=== PATIENT | female | born 1990 | race Caucasian/White ===

== ENCOUNTER 2018-03-09 13:46 | Emergency (ER) | payer SELFPAY ==
[~2018-03-09] VITALS: Ht 165.1 cm; Wt 95.2 kg
[2018-03-09 13:51] VITALS: Ht 165.1 cm; Wt 95.2 kg
[2018-03-09 15:21] LABS: BASOPHIL % 0.8 % (0-2); PLATELET COUNT 284 x10^3mcL (130-400)
[2018-03-09 15:34] LABS: UA SPECIFIC GRAVITY 1.025 (1.005-1.035); urine erythrocyte NEGATIVE (NEGATIVE)
[2018-03-09 15:40] LABS: microscopic required? YES
[2018-03-09 16:14] LABS: RED CELL DISTRIBUTION WIDTH 15.1 % (11.5-14.5)
[2018-03-09 16:35] LABS: CALCIUM 8.1 mg/dL (8.5-10.1); CARBON DIOXIDE 23.7 mmol/L (21-32); CHLORIDE SERUM 106 mmol/L (98-107); CREATININE SERUM 0.6 mg/dL (0.6-1.0); GFR1 > 60 mL/min; GLUCOSE SERUM 87 mg/dL (74-106); POTASSIUM SERUM 3.9 mmol/L (3.5-5.1); SODIUM SERUM 138 mmol/L (136-145)
[2018-03-09 16:40] LABS: ALKALINE PHOSPHATASE 65 U/L (46-116); ALT/SGPT 27 U/L (14-59); AST/SGOT 13 U/L (15-37); BILIRUBIN TOTAL 0.3 mg/dL (0.20-1.00); TOTAL PROTEIN, SERUM 6.9 g/dL (6.4-8.2)
[2018-03-09 16:58] VITALS: BP 110/50
== END 2018-03-09 16:58 | disposition home or self-care (01) ==
LOC: ED 13:46
PROVIDERS: Emergency Medicine
DX: O21.0 Mild hyperemesis gravidarum (principal); O23.591 Infection of other part of genital tract in pregnancy, first trimester; Z3A.00 Weeks of gestation of pregnancy not specified; Z88.0 Allergy status to penicillin
CPT/HCPCS: J2405; J3490; J7030

== ENCOUNTER 2019-07-26 05:59 | Emergency (ER) | payer MEDICAID ==
[~2019-07-26] VITALS: Ht 162.6 cm; Wt 98.0 kg
[2019-07-26 06:14] VITALS: Ht 162.6 cm; Wt 98.0 kg
[2019-07-26 06:57] VITALS: BP 110/71
== END 2019-07-26 06:57 | disposition home or self-care (01) ==
LOC: ED 05:59
DX: H66.91 Otitis media, unspecified, right ear (principal); H61.21 Impacted cerumen, right ear; Z88.0 Allergy status to penicillin

== ENCOUNTER 2019-08-09 16:24 | Emergency (ER) | payer MEDICAID ==
[~2019-08-09] VITALS: Ht 165.1 cm; Wt 98.5 kg
[2019-08-09 16:35] VITALS: Ht 165.1 cm; Wt 98.5 kg
[2019-08-09 18:48] VITALS: BP 119/79
== END 2019-08-09 18:48 | disposition home or self-care (01) ==
LOC: ED 16:24
DX: J32.9 Chronic sinusitis, unspecified (principal); R51 Headache; Z88.0 Allergy status to penicillin
CPT/HCPCS: J1885; J2765

== ENCOUNTER 2020-10-18 17:02 | Emergency (ER) | payer SELFPAY ==
[~2020-10-18] VITALS: Ht 165.1 cm; Wt 95.3 kg
[2020-10-18 17:11] VITALS: Ht 165.1 cm; Wt 95.3 kg
[2020-10-18 18:07] VITALS: BP 132/88
== END 2020-10-18 18:07 | disposition home or self-care (01) ==
LOC: ED 17:02
DX: R51.9 Headache, unspecified (principal); R09.81 Nasal congestion; H92.03 Otalgia, bilateral; R09.82 Postnasal drip; R03.0 Elevated blood-pressure reading, without diagnosis of hypertension; Z88.0 Allergy status to penicillin